=== PATIENT | female | born 1960 | race Caucasian/White ===

== ENCOUNTER 2016-08-19 10:58 | Day surgery (SDC) | payer OTHER ==
[~2016-08-19] VITALS: Ht 157.5 cm; Wt 78.0 kg
[~2016-08-19 10:58] MED LIST: FLUO10TA PO; HYDR-4003 PO; ONDA-53 PO; Sodium Chloride LOK Flush 10 mL Syringe IVFLUSH SCH; TRAZ-115 PO; fentaNYL-PF 50 mCg/mL 2 mL Inj IVPUSH PRN
[2016-08-19 11:23] VITALS: BP 129/70; PULSE 55; RESP 16; O2SAT 99
[2016-08-19 12:45] VITALS: BP 142/74; PULSE 64; RESP 16; O2SAT 97
[2016-08-19 12:55] VITALS: BP 128/76; PULSE 60; RESP 16; O2SAT 97
[2016-08-19 13:04] VITALS: BP 142/81; PULSE 55; RESP 16; O2SAT 100
--- NOTE | 2016-08-19 13:25 | ENDO ---
[address] [address] ENDOSCOPY PROCEDURE PATIENT: MODESTO MARS : 1960 MR#: [id number] ADMIT: 08/19/2016 JOB ID: [id number] DATE: 08/19/2016 PRIMARY CARE PHYSICIAN: Yumi Castorena PA-C PROCEDURE: Screening colonoscopy. INDICATION: The patient is a 56-year-old female with a recent episode of diverticulitis who has never had a previous screening colonoscopy. EQUIPMENT: [facility] [address] SEDATION: 1. Versed 5 mg. 2. Fentanyl 100 mcg. PREPARATION QUALITY: Was good. COMPLICATIONS: None identified. PROCEDURE INFORMATION: The patient was brought into the endoscopy suite and placed in the left lateral decubitus position. Sedation was achieved using the above-stated medications with the addition of oxygen administered via nasal cannula. Digital rectal examination was performed and was unremarkable. The colonoscope was then introduced through the anus and advanced under direct visualization through to the cecum. The appendiceal orifice as well as ileocecal valve were identified and photographed. The ileocecal valve was intubated and the terminal ileum photographed. The scope was then slowly withdrawn, examining the mucosa for any defects or polyps. In the sigmoid colon, only a single diverticulum was identified. There was some mild inflammation. Retroflexed views were obtained in the rectum. She had some mild internal hemorrhoids. The scope was then withdrawn and the procedure completed. The patient tolerated the entire procedure well without evident complication. FINDINGS: Resolving diverticulitis. RECOMMENDATIONS: Repeat screening colonoscopy in 10 years.
[2016-09-10] MEDS ORDERED: ACET-2605 PO (12:48)
== END 2016-08-19 23:59 | disposition home or self-care (01) ==
LOC: END 10:58
PROVIDERS: ATTEND General Practice
DX: K57.32 Diverticulitis of large intestine without perforation or abscess without bleeding (principal)
CPT/HCPCS: 45378; 99153; G0500; J2250; J3010